=== PATIENT | male | born 1950 | race Caucasian/White ===

== ENCOUNTER → 2020-09-05 08:54 | Outpatient (POV) | payer SELFPAY | PROVIDERS: Visit Provider Audiologist | DX: Z00.00 Encounter for general adult medical examination without abnormal findings (principal) ==

== ENCOUNTER 2020-09-30 11:32 | Emergency (ER) | payer MEDICARE, SELFPAY ==
[2020-09-30 12:10] VITALS: BP 114/67; PULSE 89; RESP 20; TEMP 37.4; O2SAT 96; BMI 35.2
--- NOTE | 2020-09-30 12:28 | HMH.EDUTC ---
[facility] [place] Disposition Clinical Impression: Exposure to COVID-19 virus Sinusitis Qualifiers: Sinusitis location: unspecified location Chronicity: unspecified Qualified Code(s): J32.9 - Chronic sinusitis, unspecified Disposition: Home, Self-Care Condition on Discharge: Good Instructions: Sinusitis, Sinus Headache, DI for Sinusitis Additional Instructions: *Monitor Temp, Over the counter Motrin or Tylenol as directed/as needed Tylenol every 4 hours and Motrin every 6 hours (as long as your family doctor has told you that you can take it) for fever or pain. and straight to ER if unable to lower temp less than 101.0 after medication given *Warm salt water gargles may help to soothe the throat *Throat Lozenges *Warm fluids like tea with honey may help to soothe the throat *Sleep elevated *Humidifier/Vaporizer *Flonase 2 sprays in each nostril daily but be aware that it may take 2-3 days before you notice improvement Follow up IMMEDIATELY for new or worsening symptoms or no Noticeable improvement over the next 48-72 hours. 911 for difficulty breathing or swallowing You was tested for today for COVID19 your test result should be back in the next 24-48 hours, you may call to the [facility] later today or tomorrow to see if your test results are back and the result [phone] [facility] hours are 9am-9pm You was given a handout with instructions for Self Quarantine and Self isolation for while you wait on test results and what to do if they are positive If you are positive the Health Dept will be contacting you also Prescriptions: Cefdinir [Omnicef 300mg Capsule] 300 mg PO BID #20 cap Transmission Status: Received by [facility]/pharmacy #[id number] Referrals: Angela Tian [Primary Care Provider] - As needed Time of Disposition: 12:36 Medical Decision Making - Marc Inquiry Pt receiving controlled substance: No Marc was queried for this patient: No Vital Signs: 09/30/20 12:10 09/30/20 12:39 Temperature 99.3 F 99.3 F Temperature Source Oral Pulse Rate 89 Pulse Rate [Right Brachial] 89 Respiratory Rate 20 20 Blood Pressure 114/67 Blood Pressure [Right Arm] 114/67 Blood Pressure Mean [Right Arm] 82 Blood Pressure Source [Right Arm] Automatic Cuff Blood Pressure Position [Right Arm] Sitting 02 Sat by Pulse Oximetry 96 Oxygen Delivery Method Nasal Cannula Oxygen Flow Rate (LPM) 2 Orders (Tests/Meds): ED MEDICATIONS Discontinued Medications Generic Name Dose Route Start Last Admin Trade Name Claritza PRN Reason Stop Dose Admin Dexamethasone Sodium Phosphate 4 mg 09/30/20 12:33 09/30/20 12:38 Dexamethasone 4mg/Ml 1ml Vial IM 09/30/20 12:34 4 mg ONCE ONE Administration ORDERS Category Date Time Status Covid-19 Nasal PCR Sendout Phillip Routine Lab 09/30/20 12:[address] [facility] [place] HPI - General Stated complaint: covid test Time Seen by Provider: 09/30/20 12:28 Mode of Arrival: Ambulatory Source of Information: Patient Limitations: No Limitations Description of Symptoms (Recalled from Triage Doc. by RN): PATIENT EXPOSED TO COVID ON 09/15/20 AND WAS ON QUARANTINE UNTIL 09/29/20. HE C/O SHAKINESS, SINUS DRAINAGE, AND COUGH THAT STARTED WEDNESDAY HEENT Symptoms (Recalled from RN notes): Yes Resp Symptoms (Recalled from RN notes): Yes Skin Symptoms (Recalled from RN notes): No MS Symptoms (Recalled from RN notes): No Functional Status (Recalled from RN notes): WNL - History of Present Illness Provider Complaint: Patient state that he was recently exposed to someone that tested positive for COVID States that he has been on quarantine but started having some symptoms a couple days ago with drainage, throat irritation and cough States that he was chilling earlier and wanted to get tested - Related Data Previous Rx's Medication Instructions Recorded Cefdinir [Omnicef 300mg Capsule] 300 mg PO BID #20 cap 09/30/20 Allergies Allergy/AdvReac Type Severity Reaction Status Date / Time meperidine [From
[2020-09-30 12:39] VITALS: BP 114/67; PULSE 89; RESP 20; TEMP 37.4; O2SAT 96
[2020-10-01 13:24] LABS: Covid-19 Nasal PCR Sendout Lex Positive
--- NOTE | 2020-10-01 15:53 | PC.NURSE ---
PT NOTIFIED OF POSITIVE COVID RESULTS
== END 2020-09-30 12:50 | disposition home or self-care (01) ==
PROVIDERS: Emergency Provider Nurse Practitioner; PCP Family Medicine
DX: U07.1 COVID-19 (principal); Z88.2 Allergy status to sulfonamides
CPT/HCPCS: G0463; 96372; 99202; U0004

== ENCOUNTER → 2020-10-24 08:43 | Outpatient (POV) | payer MEDICARE, SELFPAY | PROVIDERS: Visit Provider Audiologist | DX: Z00.00 Encounter for general adult medical examination without abnormal findings (principal) ==